=== PATIENT | male | born 1970 | race Caucasian/White ===

== ENCOUNTER 2025-08-21 14:30 | Outpatient (CLI) | payer BC | END 2025-08-21 14:31 | disposition home or self-care (01) | LOC: NAV RAD 14:30 | PROVIDERS: ATTEND Nurse Practitioner Family | DX: M54.50 Low back pain, unspecified (principal); M47.816 Spondylosis without myelopathy or radiculopathy, lumbar region; Z98.890 Other specified postprocedural states | CPT/HCPCS: 72110 ==